=== PATIENT | female | born 1950 | race Caucasian/White ===

== ENCOUNTER 2016-12-01 08:50 | Outpatient (CLI) | payer OTHER ==
[2016-12-01] MEDS ORDERED: GADOPENTETATE DIMEGLUMINE 15 ML VIAL IV ONE (09:18)
== END 2016-12-01 19:43 | disposition home or self-care (01) ==
LOC: SMI 08:50 → EEVIPCON 09:00 → SMI 19:43
PROVIDERS: ATTEND Preventive Medicine Preventive Medicine/Occupational Environmental Medicine
DX: C79.31 Secondary malignant neoplasm of brain (principal)
CPT/HCPCS: 70551; A9579